=== PATIENT | female | born 1990 | race Caucasian/White ===

== ENCOUNTER 2017-06-26 14:43 | Inpatient (IN) | payer OTHER ==
[~2017-06-26] VITALS: Ht 154.9 cm; Wt 91.0 kg
[2017-06-26] VITALS (28 sets, daily range): BP systolic 105–159; BP diastolic 47–96; PULSE 83–105; RESP 18–20; TEMP 98.1
[~2017-06-26 14:43] MED LIST: ACET325; AMOX250S3 PO; DIPH2%T; PRENCAP6 PO; SYNT112T PO; SYNT88TA PO
[2017-06-26 16:42] LABS: AUTOMATED NEUTROPHIL # 7.3 TH/MM3 (1.8-7.7); BASOPHIL % 0.4 % (0.0-2.0); EOSINOPHIL # 0.2 TH/MM3 (0-0.4); EOSINOPHIL % 1.8 % (0.0-4.0); HEMATOCRIT 27.7 % (35.0-46.0); HEMOGLOBIN 9.4 GM/DL (11.6-15.3); LYMPH % 22.2 % (9.0-44.0); LYMPHOCYTE # 2.4 TH/MM3 (1.0-4.8); MEAN CELL VOLUME 70.1 FL (80.0-100.0); MEAN CORPUSCULAR HEMOGLOBIN 23.9 PG (27.0-34.0); MEAN CORPUSCULAR HGB CONC 34.1 % (32.0-36.0); MEAN PLATELET VOLUME 9.7 FL (7.0-11.0); MONO % 8.7 % (0.0-8.0); MONOCYTE # 0.9 TH/MM3 (0-0.9); NEUT % 66.9 % (16.0-70.0); PLATELET COUNT 136 TH/MM3 (150-450); RED BLOOD COUNT 3.96 MIL/MM3 (4.00-5.30); RED CELL DISTRIBUTION WIDTH 17.7 % (11.6-17.2); WHITE BLOOD COUNT 10.9 TH/MM3 (4.0-11.0)
[2017-06-26] MEDS ORDERED: LIDOCAINE HCL 1% 50 ML VIAL INFIL PRN (17:00)
[2017-06-26] MEDS ORDERED: LACTATED RINGER'S 1000 ML INJ 1,000 ML IV SCH (17:00)
[2017-06-26] MEDS ORDERED: MINERAL OIL 10 ML VIAL TOPICAL PRN (17:00)
[2017-06-26] MEDS ORDERED: CITRIC ACID-SODIUM CITRATE LIQ 30 ML UDC PO SCH (17:00)
[2017-06-26] MEDS ORDERED: LACTATED RINGER'S 1000 ML INJ 1,000 ML IV PRN (17:00)
[2017-06-26] MEDS ORDERED: OXYTOCIN 30 UNITS-500ML PREMIX 500 ML IV ONE (17:00)
[2017-06-26] MEDS ORDERED: OXYTOCIN 30 UNITS-500ML PREMIX 500 ML IV PRN (17:00)
[2017-06-26] MEDS ORDERED: LIDOCAINE HCL 1% 50 ML VIAL I-DERMAL PRN (17:00)
[2017-06-26] MEDS ORDERED: SODIUM CHLORID 0.9% 500 ML INJ 500 ML IV PRN (17:00)
[2017-06-26 17:11] LABS: BILIRUBIN, URINE NEG (NEG); BLOOD, URINE NEG (NEG); GLUCOSE,URINE NEG (NEG); KETONE, URINE NEG (NEG); NITRITE,URINE NEG (NEG); PH, URINE 6.5 (5.0-8.5); SQUAMOUS EPITHELIAL CELL URINE 4 /hpf (0-5); URINE COLOR LIGHT-YELLOW (YELLW/STRAW); URINE LEUKOCYTE ESTERASE NEG (NEG)
[2017-06-26] MEDS ORDERED: SODIUM CHLOR 0.9% 1000 ML INJ 1,000 ML IV PRN (17:14)
--- NOTE | 2017-06-26 17:18 | HHI.HP ---
HPI Chief Complaint 40 weeks and decreased movement Date Seen: June 26, 2017 Time Seen: 17:00 Travel History International Travel<30 Days: No Contact w/Intl Traveler<30Days: No Known Affected Area: No History of Present Illness HPI 26 yo who now has decreased movement and desires induction. She is aware of pitocin and need for contractions Weeks Gestation: 40 Para: 1 : 2 History Past Medical History Narrative Medical history of dysplasia and hypothyroid, asthma Obstetric History Obstetric History x1 Past Surgical History Narrative Surgical LEEP Family History Family History: Negative Social History Alcohol Use: No Tobacco Use: No Substance Abuse: No Allergies-Medications (Allergen,Severity, Reaction): Coded Allergies: No Known Allergies (Verified , 04/30/06) Home Meds Active Scripts Amoxicillin (Amoxil) 250 Mg/5 Ml Susp, 15 ML PO BID for 10 Days, ML Prov:Wendi Mcallister MD 12/21/15 Reported Medications Synthroid 88 mcg (Synthroid 88 mcg) 88 Mcg Tab, 88 MCG PO DAILY for Thyroid, # 30 TAB 3 Refills 04/16/15 Mv & Min W/Fe Fumarat ( 1) Cap, 1 CAP PO DAILY, CAP 04/15/15 Synthroid 112 mcg (Synthroid 112 mcg) 112 Mcg Tab, 112 MCG PO DAILY, TAB 04/15/15 Diphenhydramine Hcl (Benadryl) 25 Mg Cap 12/09/05 Acetaminophen (Tylenol) 325 Mg Tab 12/09/05 Review of Systems Except as stated in HPI: all other systems reviewed are Neg Physical Exam Narrative GENERAL: Well-nourished, well-developed patient. SKIN: Warm and dry. HEAD: Normocephalic and atraumatic. EYES: No scleral icterus. No injection or drainage. ENT: No nasal drainage noted. Mucous membranes pink. Airway patent. NECK: Supple, trachea midline. No JVD. CARDIOVASCULAR: Regular rate and rhythm without murmurs, gallops, or rubs. RESPIRATORY: Breath sounds equal bilaterally. No accessory muscle use. BREASTS: Bilateral exam showed no masses , no retractions, no nipple discharge. ABDOMEN/GI: Abdomen soft, non-tender, bowel sounds present, no rebound, no guarding Gravid to 40weeks size Fundal Height: [-] GENITOURINARY: External Genitalia: intact and normal in appearance BUS glands: [-] Cervix: [-] Dilatation: ft Effacement: 60 Station: -2 Presentation: vtx Membranes: [intact Uterine Contractions: [-] FHT's: Category: 1 Baseline: [-] Reactive: [-] Variability: [-] Decels: [-] EXTREMITIES: No cyanosis or edema. BACK: Nontender without obvious deformity. No CVA tenderness. NEUROLOGICAL: Awake and alert. Motor and sensory grossly within normal limits. Five out of 5 muscle strength in all muscle groups. Normal speech. Caprini VTE Risk Assessment Caprini VTE Risk Assessment: No/Low Risk (score <= 1) Caprini Risk Assessment Model Point Value = 1 Point Value = 2 Point Value = 3 Point Value = 5 Age 41-60 Minor surgery BMI > 25 kg/m2 Swollen legs Varicose veins or History of unexplained or recurrent spontaneous Oral contraceptives or hormone replacement Sepsis (< 1 month) Serious lung disease, including pneumonia (< 1 month) Abnormal pulmonary function Acute myocardial infarction Congestive heart failure (< 1 month) History of inflammatory bowel disease Medical patient at bed rest Age 61-74 Arthroscopic surgery Major open surgery (> 45 min) Laparoscopic surgery (> 45 min) Malignancy Confined to bed (> 72 hours) Immobilizing plaster cast Central venous access Age >= 75 History of VTE Family history of VTE Factor V Leiden Prothrombin [id number] Lupus anticoagulant Anticardiolipin antibodies Elevated serum homocysteine Heparin-induced thrombocytopenia Other congenital or acquired thrombophilia Stroke (< 1 month) Elective arthroplasty Hip, pelvis, or leg fracture Acute spinal cord injury (< 1 month) Prophylaxis Regimen Total Risk Factor Score Risk Level Prophylaxis Regimen 0-1 Low Early ambulation 2 Moderate Order ONE of the following: *Sequential Compression Device (SCD) *Heparin 5000 units SQ BID 3-4 Higher Order ONE of the following medications: *Heparin 5000 units SQ TID *Enoxaparin/Lovenox 40 mg SQ daily (WT < 150 kg, CrCl > 30 mL/min) *Enoxaparin/Lovenox 30 mg SQ daily (WT < 150 kg, CrCl > 10-29 mL/min) *Enoxaparin/Lovenox 30 mg SQ BID (WT < 150 kg, CrCl > 30 mL/min) AND/OR *Sequential Compression Device (SCD) 5 or more Highest Order ONE of the following medications: *Heparin 5000 units SQ TID (Preferred with Epidurals) *Enoxaparin/Lovenox 40 mg SQ daily (WT < 150 kg, CrCl > 30 mL/min) *Enoxaparin/Lovenox 30 mg SQ daily (WT < 150 kg, CrCl > 10-29 mL/min) *Enoxaparin/Lovenox 30 mg SQ BID (WT < 150 kg, CrCl > 30 mL/min) AND *Sequential Compression Device (SCD) Data Data Vital Signs Reviewed: Yes Orders Orders Complete Blood Count With Diff (06/26/17 16:20) Hold Clot (06/26/17 16:20) Type And Screen (06/26/17 16:20) Urinalysis - C+S If Indicated (06/26/17 16:20) Specimen To Be Collected PRN (06/26/17 16:20) Ob/Psych Drug Screen, Urine (06/26/17 16:20) Specimen To Be Collected PRN (06/26/17 16:20) Diet Clear Liquid (06/26/17 Dinner) Admit To Inpatient (06/26/17 ) Code Status (06/26/17 16:54) Vital Signs (Adult) .Per protocol (06/26/17 16:54) Heart (06/26/17 16:54) Amnioinfusion (06/26/17 16:54) Urinary Catheter Management .ONCE (06/26/17 16:54) Lactated Ringer's 1000 Ml Inj (Lr 1000 M (06/26/17 17:00) Lactated Ringer's 1000 Ml Inj (Lr 1000 M (06/26/17 17:00) Sodium Chlorid 0.9% 500 Ml Inj (Ns 500 M (06/26/17 17:00) Sodium Chlor 0.9% 1000 Ml Inj (Ns 1000 M (06/26/17 17:14) Lidocaine 1% Inj (50 Ml) (Xylocaine 1% I (06/26/17 17:00) Citric Acid-Sodium Citrate Liq (Bicitra (06/26/17 17:00) Fentanyl Inj (Fentanyl Inj) (06/26/17 17:00) Fentanyl Inj (Fentanyl Inj) (06/26/17 17:00) Resp Oxygen Non Rebreathe Mask (06/26/17 ) ^ Epidural / Intrathecal Infus (06/26/17 16:54) Oxytocin 30 Units-500ml Premix (Pitocin (06/26/17 17:00) Lidocaine 1% Inj (50 Ml) (Xylocaine 1% I (06/26/17 17:00) Light Mineral Oil (Muri-Lube Oil) (06/26/17 17:00) Inpatient Certification (06/26/17 ) ^ Non Stress Test (06/26/17 16:56) Response To Medication .Post New Med Administration, Reaction (06/26/17 16:56) ^ Discontinue Medication (06/26/17 16:56) Oxytocin 30 Units-500ml Premix (Pitocin (06/26/17 17:00) Group B Strep: Negative Labs Laboratory Tests Test 06/26/17 15:45 06/26/17 16:00 White Blood Count 10.9 Red Blood Count 3.96 Hemoglobin 9.4 Hematocrit 27.7 Mean Corpuscular Volume 70.1 Mean Corpuscular Hemoglobin 23.9 Mean Corpuscular Hemoglobin Concent 34.1 Red Cell Distribution Width 17.7 Platelet Count 136 Mean Platelet Volume 9.7 Neutrophils (%) (Auto) 66.9 Lymphocytes (%) (Auto) 22.2 Monocytes (%) (Auto) 8.7 Eosinophils (%) (Auto) 1.8 Basophils (%) (Auto) 0.4 Neutrophils # (Auto) 7.3 Lymphocytes # (Auto) 2.4 Monocytes # (Auto) 0.9 Eosinophils # (Auto) 0.2 Basophils # (Auto) 0.0 CBC Comment DIFF FINAL Differential Comment Assessment/Plan Problem List: (1) 40 weeks gestation of ICD Codes: Z3A.40 - 40 weeks gestation of (2) Decreased movement affecting management of in third trimester ICD Codes: O36.8130 - Decreased movements, third trimester, not applicable or unspecified Vipin Yan MD June 26, 2017 17:18
[2017-06-26] MEDS ORDERED: fentaNYL 2MCG-BUPIV 0.125% INJ 100 ML ONE (21:42)
[2017-06-26] MEDS ORDERED: LIDOCAINE HCL 1% PF 5 ML AMPULE ONE (21:46)
[2017-06-26] MEDS ORDERED: LIDOCAINE 1.5%/EPINEPHrine 1:200,000 PF SOLN 30 ML AMP ONE (21:46)
[2017-06-26] MEDS ORDERED: NO SYSTEM NARCOTICS PRN (22:30)
[2017-06-26] MEDS ORDERED: fentaNYL 2MCG-BUPIV 0.125% 100 ML EPIDURAL PRN (22:30)
[2017-06-26] MEDS ORDERED: ePHEDrine/NS 25 MG/5 ML SYRINGE IV PUSH PRN (22:30)
[2017-06-26] MEDS ORDERED: DO NOT ADMINISTER ANTICOAGULANTS PRN (22:30)
[2017-06-27] VITALS (16 sets, daily range): BP systolic 108–140; BP diastolic 49–93; PULSE 83–109; RESP 17–20; TEMP 98.2–98.4; O2SAT 100
--- NOTE | 2017-06-27 00:23 | PD.LABORPN ---
Subjective Subjective doing well, feeling pressure with Contractions Objective Vital Signs Vital Signs Date Time Temp Pulse Resp B/P (MAP) Pulse Ox O2 Delivery O2 Flow Rate FiO2 06/27/17 00:03 20 06/27/17 00:00 91 124/72 (89) 06/26/17 23:45 99 20 06/26/17 23:45 142/86 (104) 06/26/17 23:30 94 20 06/26/17 23:30 126/83 (97) 06/26/17 23:15 93 133/89 (104) 06/26/17 23:10 18 06/26/17 23:00 18 06/26/17 23:00 83 06/26/17 22:46 105/62 (76) 06/26/17 22:46 98 06/26/17 22:45 18 06/26/17 22:45 129/92 (104) 06/26/17 22:30 110/61 (77) 06/26/17 22:30 91 06/26/17 22:28 95 06/26/17 22:28 108/78 (88) 06/26/17 22:24 138/69 (92) 06/26/17 22:21 124/47 (72) 06/26/17 22:18 126/78 (94) 06/26/17 22:15 88 06/26/17 22:12 92 132/68 (89) 06/26/17 22:10 92 06/26/17 22:09 130/70 (90) 06/26/17 22:06 100 132/72 (92) 06/26/17 22:01 140/69 (92) 06/26/17 21:58 20 06/26/17 21:55 105 06/26/17 21:53 105 159/71 (100) 06/26/17 21:37 18 06/26/17 21:35 98 146/96 (113) 06/26/17 20:00 18 06/26/17 19:46 96 125/81 (96) 06/26/17 18:21 94 127/81 (96) 06/26/17 17:50 90 125/90 (102) Objective Pelvic Exam: Cervix: [-] Dilatation: 9.5 Effacement: 90 Station: [-] Presentation: vtx Membranes: SROM Uterine Contractions: Q3 FHT's: Category: 1 Baseline: [-] Reactive: [-] Variability: [-] Decels: [-] Weeks Gestation: 40 Gest Age Assessed Date: June 26, 2017 Gest Age Assessed Time: 17:00 Pt started active labor?: Yes Active labor start date: June 27, 2017 Active labor start time: 17:00 Medical induction of labor?: No Artificial rupture of membrane: No Assessment/Plan Problem List: (1) 40 weeks gestation of ICD Codes: Z3A.40 - 40 weeks gestation of (2) Decreased movement affecting management of in third trimester ICD Codes: O36.8130 - Decreased movements, third trimester, not applicable or unspecified Plan: labor and pitocin until ready to push Vipin Yan MD June 27, 2017 00:23
--- NOTE | 2017-06-27 01:34 | PD.OB.DELI ---
Weeks gestation: 40 Gest age assessed date: June 26, 2017 Gest age assessed time: 17:00 Pt started active labor?: Yes Active labor start date: June 27, 2017 Active labor start time: 17:00 Medical induction of labor?: No Artificial rupture of membrane: No Anesthesia: Epidural Episiotomy: None Vaginal Delivery: Normal, Spontaneous Presentation: Occiput anterior Delayed cord clamping (45 sec): Yes Infant: Female, Single Delivery date: June 27, 2017 Delivery time: 01:13 One Minute : 9 Five Minute : 9 Weight: 7# 5 oz Placenta: Spontaneous delivery, Intact, 3 vessel cord Laceration: Vaginal laceration, 2 deg Repair: Chromic running Estimated blood loss: 300 Vipin Yan MD June 27, 2017 01:34
[2017-06-27] MEDS ORDERED: WITCH HAZEL 50%/GLYCERIN 12.5% 40 PAD JAR TOPICAL PRN (01:45)
[2017-06-27] MEDS ORDERED: BENZOCAINE 20% TOPICAL SPRAY 60 ML CAN TOPICAL PRN (01:45)
[2017-06-27] MEDS ORDERED: SODIUM CHLORIDE 0.9% FLUSH 10 ML FLUSH IV FLUSH PRN (01:45)
[2017-06-27] MEDS ORDERED: ALUMINUM/MAGNESIUM/SIMETH 30 ML CUP PO PRN (01:45)
[2017-06-27] MEDS ORDERED: oxyCODONE/ACETAMINOPHEN 5 MG/325 MG TAB PO PRN (01:45)
[2017-06-27] MEDS ORDERED: ZOLPIDEM TARTRATE 5 MG TAB PO PRN (01:45)
[2017-06-27] MEDS ORDERED: OXYTOCIN 30 UNITS-500ML PREMIX 500 ML IV SCH (01:45)
[2017-06-27] MEDS ORDERED: ONDANSETRON ODT 4 MG TAB PO PRN (01:45)
[2017-06-27] MEDS: IBUPROFEN 800 MG TAB PO PRN ×3 (06:58→23:33)
[2017-06-27] MEDS ORDERED: SODIUM CHLORIDE 0.9% FLUSH 10 ML FLUSH IV FLUSH SCH (09:00)
[2017-06-27] MEDS: ACETAMINOPHEN 325 MG TAB PO PRN ×3 (10:58→19:42)
[2017-06-27] MEDS: DOCUSATE SODIUM 50 MG/SENNA 8.6 MG TAB PO PRN ×2 (11:06→23:33)
[2017-06-27] MEDS ORDERED: MEASLES, MUMPS, RUBELLA VACCINE 0.5 ML VIAL SQ ONE (16:00)
[2017-06-27] MEDS ORDERED: DIPHTH/TETANUS/ACEL PERTUSSIS (BOOSTER) 0.5 ML VIAL/PFS IM ONE (16:00)
[2017-06-27] MEDS: oxyCODONE/ACETAMINOPHEN 5 MG/325 MG TAB PO PRN (23:34)
[2017-06-28] MEDS: oxyCODONE/ACETAMINOPHEN 5 MG/325 MG TAB PO PRN ×2 (06:12→10:16)
[2017-06-28] MEDS ORDERED: DIPHTH/TETANUS/ACEL PERTUSSIS (BOOSTER) 0.5 ML VIAL/PFS IM ONE (08:00)
[2017-06-28 08:08] VITALS: BP 139/81; PULSE 96; RESP 16; TEMP 97.9
[2017-06-28 08:29] VITALS: PULSE 96; RESP 16
--- NOTE | 2017-06-28 08:49 | HHI.OB ---
Subjective Post Day: 1 Remarks doing well Objective Vitals/I&O Vital Signs Date Time Temp Pulse Resp B/P (MAP) Pulse Ox O2 Delivery O2 Flow Rate FiO2 06/28/17 08:29 96 16 06/28/17 08:08 96 06/28/17 08:08 97.9 16 06/28/17 08:08 139/81 (100) 06/27/17 20:00 98.2 92 18 116/73 (87) 100 Objective Remarks GENERAL: Well-nourished, well-developed patient. ABDOMEN/GI: Abdomen soft, non-tender. Fundus: Firm, non-tender at umbilicus. GENITOURINARY: Light to moderate bleeding. EXTREMITIES: No cyanosis or edema, non-tender, without signs of DVT. Medications and IVs Current Medications Medications (Trade) Dose Ordered Sig/Farhat Route Start Time Stop Time Status Last Admin (NS Flush) 2 ml BID IV FLUSH 06/27/17 09:00 (NS Flush) 2 ml UNSCH PRN IV FLUSH 06/27/17 01:45 (Tylenol) 650 mg Q4H PRN PO 06/27/17 01:45 06/27/17 19:42 (Motrin) 800 mg Q8H PRN PO 06/27/17 01:45 06/27/17 23:33 (Percocet 5-325 Mg) 1 tab Q4H PRN PO 06/27/17 01:45 06/28/17 06:12 (Percocet 5-325 Mg) 2 tab Q4H PRN PO 06/27/17 01:45 (Americaine 20% Top Spr) 1 spray Q4H PRN TOPICAL 06/27/17 01:45 06/27/17 10:58 (Tucks Pads) 1 applic QID PRN TOPICAL 06/27/17 01:45 06/27/17 10:58 (Nicole-Colace) 2 tab Q12H PRN PO 06/27/17 01:45 06/27/17 23:33 (Ambien) 5 mg HS PRN PO 06/27/17 01:45 (Mag-Al Plus Susp Liq) 15 ml Q8H PRN PO 06/27/17 01:45 (Zofran Odt) 4 mg Q6H PRN PO 06/27/17 01:45 Assessment/Plan Problem List: (1) 40 weeks gestation of ICD Codes: Z3A.40 - 40 weeks gestation of (2) Decreased movement affecting management of in third trimester ICD Codes: O36.8130 - Decreased movements, third trimester, not applicable or unspecified Plan: labor and pitocin until ready to push (3) Spontaneous vaginal delivery ICD Codes: O80 - Encounter for full-term uncomplicated delivery Assessment and Plan dc today Vipin Yan MD June 28, 2017 08:49
[2017-06-28] MEDS ORDERED: OXYC1TAB63 PO (08:51)
--- NOTE | 2017-06-28 08:51 | HHI.DCPOC ---
Discharge Care Plan Diagnosis: (1) Spontaneous vaginal delivery Report Symptoms to Your Doctor -Temperature above 100.5 degrees -Redness, of incision or excessive or foul smelling drainage -Unusual pain or calf pain -Increased vaginal bleeding -Painful or difficulty urinating -Feelings of extreme sadness or anxiety after 2 weeks Goals to Promote Your Health * To prevent worsening of your condition and complications * To maintain your health at the optimal level Directions to Meet Your Goals Take your medications as prescribed Follow your dietary instruction Follow activity as directed Ensure plenty of rest for recovery Drink fluids for hydration Keep your appointments as scheduled Take your immunizations and boosters as scheduled If your symptoms worsen call your PCP, if no PCP go to Urgent Care Center or Emergency Room Smoking is Dangerous to Your Health. Avoid second hand smoke Call the 24-hour crisis hotline for domestic abuse at Vipin Yan MD June 28, 2017 08:51
--- NOTE | 2017-06-28 08:53 | HHI.DS ---
Admission Date June 26, 2017 at 14:43 Discharge Date: June 28, 2017 Admitting Diagnosis Diagnosis: (1) Spontaneous vaginal delivery ICD Codes: O80 - Encounter for full-term uncomplicated delivery Delivery Date: June 27, 2017 Vaginal Delivery: Normal, Vacuum : Female, Single Brief History 26 yo who now has decreased movement and desires induction. She is aware of pitocin and need for contractions Hospital Course doing well without difficulty Pt Condition on Discharge: Good Discharge Disposition: Discharge Home Discharge Instructions Diet Instructions: As Tolerated, No Restrictions Activities You Can Perform: Pelvic Rest Activities to Avoid: Driving for 24 hrs Follow up Referrals: SUPERVISOR OF OFFICIALS - [facility] Weeks [facility] Vipin Yan MD New Medications: Oxycodone HCl/Acetaminophen (Oxycodone-Acetaminophen 5-325) 5 Mg-325 Mg Tablet 1 TAB PO Q4H PRN for PAIN SCALE 3 TO 5, #12 TAB Continued Medications: Mv & Min W/Fe Fumarat ( 1) 30 Mg-975 Mcg-200 Mg Cap 1 CAP PO DAILY, CAP Synthroid 112 mcg (Synthroid 112 mcg) 112 Mcg Tab 112 MCG PO DAILY, TAB Discontinued Medications: Acetaminophen (Tylenol) 325 Mg Tab Amoxicillin (Amoxil) 250 Mg/5 Ml Susp 15 ML PO BID for 10 Days, ML Diphenhydramine Hcl (Benadryl) 25 Mg Cap Synthroid 88 mcg (Synthroid 88 mcg) 88 Mcg Tab 88 MCG PO DAILY for Thyroid, #30 TAB 3 Refills Vipin Yan MD June 28, 2017 08:53
[2017-06-28] MEDS: IBUPROFEN 800 MG TAB PO PRN (09:19)
== END 2017-06-28 13:21 | disposition home or self-care (01) | DRG 775 ==
LOC: H2EB 14:43 → H1EA 06-27 03:47
PROVIDERS: ADMIT Obstetrics & Gynecology; ATTEND Obstetrics & Gynecology
PROC: 00HU33Z Insertion of Infusion Device into Spinal Canal, Percutaneous Approach (ICD-10-PCS; 2017-06-26)
PROC: 3E0R3BZ Introduction of Anesthetic Agent into Spinal Canal, Percutaneous Approach (ICD-10-PCS; 2017-06-26)
PROC: 3E033VJ Introduction of Other Hormone into Peripheral Vein, Percutaneous Approach (ICD-10-PCS; 2017-06-26)
PROC: 10D07Z6 Extraction of Products of Conception, Vacuum, Via Natural or Artificial Opening (ICD-10-PCS; principal; 2017-06-27)
PROC: 0KQM0ZZ Repair Perineum Muscle, Open Approach (ICD-10-PCS; 2017-06-27)
DX: O36.8130 Decreased fetal movements, third trimester, not applicable or unspecified (principal); O99.284 Endocrine, nutritional and metabolic diseases complicating childbirth; O70.1 Second degree perineal laceration during delivery; O99.52 Diseases of the respiratory system complicating childbirth; Z23 Encounter for immunization; Z37.0 Single live birth; Z3A.40 40 weeks gestation of pregnancy
CPT/HCPCS: 80307; 81001; 85025; 86850; 86900; 86901; G0481; J2590; J7120